=== PATIENT | female | born 1980 | race Two or more races ===

== ENCOUNTER 2024-10-12 06:27 | Day surgery (SDC) | payer OTHER, SELFPAY | END 2024-10-12 09:37 | disposition home or self-care (01) | LOC: GI 06:27 | PROVIDERS: ATTENDING PHYSICIAN Internal Medicine | DX: Z12.11 Encounter for screening for malignant neoplasm of colon (principal); D12.0 Benign neoplasm of cecum; K56.2 Volvulus; K62.89 Other specified diseases of anus and rectum; D12.8 Benign neoplasm of rectum; K64.4 Residual hemorrhoidal skin tags; Z83.719 Family history of colon polyps, unspecified | CPT/HCPCS: 45385; 88305 ==